=== PATIENT | female | born 1980 | race Two or more races ===

== ENCOUNTER 2016-08-25 17:20 | Observation (INO) | payer MEDICAID ==
[2016-08-25 17:49] LABS: Urine RBC None Seen /hpf (0 - 4)
[2016-08-25 18:11] LABS: Urine Bilirubin Negative (Negative); Urine Blood Negative /uL (Negative); Urine Color Yellow (Yellow); Urine Glucose Normal (Normal); Urine Ketone Negative (Negative); Urine Mucus FEW (None Seen); Urine Squamous Epithelial Cell FEW /hpf (<5); Urine Urobilinogen Normal (Negative); Urine pH 6.5 (5.0-8.0)
[2016-08-25 18:14] LABS: Urine Nitrite POSITIVE (Negative)
[2016-08-25] MEDS ORDERED: ceFAZolin 1GM/50ML D5W 0 ML IV ONE (18:38)
[2016-08-25] MEDS ORDERED: ceFAZolin 1GM 2 GM in D5W 5% 100 ML IV ONE (18:45)
[2016-08-25] MEDS ORDERED: LACTATED RINGER'S 1,000 ML IV ONE (19:00)
[2016-08-25 19:23] LABS: Basophils # (auto) 0.1 uL; Basophils % (auto) 1.2 % (0.0-2.0); DEFINITIVE VIEW TRANSMISSION; Eosinophils # (auto) 0.1 uL; Eosinophils % (auto) 1.3 % (0.0-7.0); Hematocrit 27.3 % (36.0-46.0); Hemoglobin 8.8 g/dL (12.2-16.2); Lymphocytes # (auto) 1.7 uL; Lymphocytes % (auto) 20.1 % (10.0-50.0); Mean Corpuscular Hemoglobin 22.5 pg (28.0-32.0); Mean Corpuscular Hgb Conc. 32.3 g/dL (32.0-36.0); Mean Corpuscular Volume 69.9 fL (80.0-100.0); Mean Platelet Volume 9.2 fL (7.4-10.4); Monocytes # (auto) 0.6 uL; Monocytes % (auto) 7.3 % (0.0-12.0); Neutrophils # (auto) 5.8 uL; Neutrophils % (auto) 70.1 % (37.0-80.0); Platelet Count (auto) 271 10^3/uL (140-450); White Blood Cell 8.2 10^3/uL (4.4-10.8)
[2016-08-25 19:47] LABS: Albumin 2.6 g/dL (3.4-5.0); BUN/Creatinine Ratio 16.3; Calcium 7.9 mg/dL (8.5-10.1); Potassium 3.3 mmol/L (3.5-5.1)
[2016-08-25 19:50] LABS: Bilirubin, Total 0.2 mg/dL (0.2-1.0); Total Protein 7.6 g/dL (6.4-8.2)
[2016-08-25 19:54] LABS: INR 0.96 (0.9-1.15); Partial Thromboplastin Time 26.1 sec (22.64-33.71); Prothrombin Time 9.9 sec (9.37-12.3)
== END 2016-08-25 20:06 | disposition home or self-care (01) | DRG 566 ==
LOC: LDRP 17:20
PROVIDERS: ADMIT Specialist; ATTEND Specialist
DX: O23.42 Unspecified infection of urinary tract in pregnancy, second trimester (principal); Z3A.21 21 weeks gestation of pregnancy
CPT/HCPCS: 36415; 59025; 76805; 80053; 81001; 81002; 85025; 85049; 85610; 85730; 86592; 86703; 86762; 86850; 86870; 86900; 86901; 86905; 87340; G0378; G0434; 96365; 96366; J0690

== ENCOUNTER 2016-09-26 03:15 | Emergency (ER) | payer MEDICAID ==
[~2016-09-26] VITALS: Ht 144.8 cm; Wt 68.9 kg
[2016-09-26 05:29] LABS: Basophils # (auto) 0 uL; Basophils % (auto) 0.1 % (0.0-2.0); DEFINITIVE VIEW TRANSMISSION; Eosinophils # (auto) 0.1 uL; Eosinophils % (auto) 1.5 % (0.0-7.0); Hematocrit 27.8 % (36.0-46.0); Hemoglobin 8.9 g/dL (12.2-16.2); Lymphocytes # (auto) 1.7 uL; Lymphocytes % (auto) 21.3 % (10.0-50.0); Mean Corpuscular Hemoglobin 21.5 pg (28.0-32.0); Mean Corpuscular Hgb Conc. 32.1 g/dL (32.0-36.0); Mean Corpuscular Volume 66.9 fL (80.0-100.0); Mean Platelet Volume 9.9 fL (7.4-10.4); Monocytes # (auto) 0.5 uL; Monocytes % (auto) 6.7 % (0.0-12.0); Neutrophils # (auto) 5.7 uL; Neutrophils % (auto) 70.4 % (37.0-80.0); Platelet Count (auto) 285 10^3/uL (140-450); Red Cell Distribution Width 18.4 % (11.6-16.0); White Blood Cell 8.1 10^3/uL (4.4-10.8)
[2016-09-26 05:43] LABS: Albumin 2.8 g/dL (3.4-5.0); BUN/Creatinine Ratio 11.9; Potassium 3.3 mmol/L (3.5-5.1)
[2016-09-26 05:46] LABS: Bilirubin, Total 0.3 mg/dL (0.2-1.0); Total Protein 7.7 g/dL (6.4-8.2)
[2016-09-26] MEDS ORDERED: POTASSIUM CHL 10% (20 MEQ/15ML) ORAL SOLN PO ONE (08:15)
[2016-09-26] MEDS ORDERED: PROMETHAZINE HCL 25 MG/ML 1ML IV ONE (08:15)
[2016-09-26] MEDS ORDERED: NALBUPHINE HCL 10 MG/1ml INJECTION IV ONE (08:15)
[2016-09-26 09:19] VITALS: BP 126/60
[2016-09-26 10:21] LABS: Urine Bilirubin Negative (Negative); Urine Blood Negative /uL (Negative); Urine Color Yellow (Yellow); Urine Glucose Normal (Normal); Urine Ketone Negative (Negative); Urine Mucus FEW (None Seen); Urine Nitrite Negative (Negative); Urine RBC 11 /hpf (0 - 4); Urine Squamous Epithelial Cell MOD /hpf (<5); Urine Urobilinogen Normal (Negative); Urine pH 6.5 (5.0-8.0)
== END 2016-09-26 10:51 | disposition home or self-care (01) ==
LOC: ER 03:16
DX: O26.892 Other specified pregnancy related conditions, second trimester (principal); G43.109 Migraine with aura, not intractable, without status migrainosus; O99.282 Endocrine, nutritional and metabolic diseases complicating pregnancy, second trimester; E87.6 Hypokalemia; E46 Unspecified protein-calorie malnutrition; Z68.32 Body mass index [BMI] 32.0-32.9, adult; Z3A.26 26 weeks gestation of pregnancy
CPT/HCPCS: 36415; 76805; 80053; 81001; 84702; 85025; 96374; 96375; 99285; J2300; J2550

== ENCOUNTER 2016-10-21 21:25 | Observation (INO) | payer MEDICAID ==
[2016-10-21 23:30] LABS: Urine Bilirubin Negative (Negative); Urine Blood Negative /uL (Negative); Urine Color Yellow (Yellow); Urine Glucose Normal (Normal); Urine Ketone Negative (Negative); Urine Mucus FEW (None Seen); Urine Nitrite Negative (Negative); Urine RBC <1 /hpf (0 - 4); Urine Squamous Epithelial Cell FEW /hpf (<5); Urine Urobilinogen Normal (Negative); Urine pH 6.5 (5.0-8.0)
== END 2016-10-21 22:43 | disposition home or self-care (01) | DRG 566 ==
LOC: LDRP 21:25
PROVIDERS: ADMIT Specialist; ATTEND Specialist
DX: O23.43 Unspecified infection of urinary tract in pregnancy, third trimester (principal); O09.523 Supervision of elderly multigravida, third trimester; O62.9 Abnormality of forces of labor, unspecified; Z3A.29 29 weeks gestation of pregnancy
CPT/HCPCS: 59025; 81001; 81002; G0378; G0434

== ENCOUNTER 2017-10-16 20:30 | Observation (INO) | payer MEDICAID ==
[~2017-10-16] VITALS: Ht 144.8 cm; Wt 61.2 kg
[2017-10-16 21:03] LABS: Urine Bacteria FEW /hpf (None Seen); Urine Blood 1+ /uL (Negative); Urine Specific Gravity 1.005 (1.001-1.035); Urine WBC 2 /hpf (0 - 5)
[2017-10-16 21:17] LABS: Alcohol, Urine < 3.0 mg/dL (0-5); Amphetamine Screen, Urine NEGATIVE (NEGATIVE); Barbiturate Scree,Urine NEGATIVE (NEGATIVE); Benzodiazephine Screen, Urine NEGATIVE (NEGATIVE); Cannabinoid Screen, Urine NEGATIVE (NEGATIVE); Cocaine Screen, Urine NEGATIVE (NEGATIVE); Opiate Scree,Urine NEGATIVE (NEGATIVE); Phencyclidine Screen, Urine NEGATIVE (NEGATIVE)
[2017-10-16] MEDS ORDERED: PREN-96 PO (22:10)
== END 2017-10-16 22:05 | disposition home or self-care (01) | DRG 566 ==
LOC: LDRP 20:30
PROVIDERS: ADMIT Obstetrics & Gynecology; ATTEND Obstetrics & Gynecology
DX: O26.892 Other specified pregnancy related conditions, second trimester (principal); M54.9 Dorsalgia, unspecified; R42 Dizziness and giddiness; R51 Headache; Z3A.22 22 weeks gestation of pregnancy
CPT/HCPCS: 76805; 80307; 81001; G0378; 59025; 81002

== ENCOUNTER 2018-01-27 12:20 | Observation (INO) | payer MEDICAID ==
[~2018-01-27 12:20] MED LIST: PREN-96 PO
[2018-01-27] MEDS ORDERED: TERBUTALINE SULFATE 1 MG/ML 1ML VIAL SC ONE ×2 (12:45→13:00)
[2018-01-27] MEDS ORDERED: LACTATED RINGER'S 1,000 ML IV ONE (12:59)
[2018-01-27] MEDS ORDERED: TERBUTALINE SULFATE 1 MG/ML 1ML VIAL SC SCH (13:00)
== END 2018-01-27 13:45 | disposition home or self-care (01) | DRG 566 ==
LOC: LDRP 12:20
PROVIDERS: ADMIT Specialist; ATTEND Specialist
DX: O62.9 Abnormality of forces of labor, unspecified (principal); O60.03 Preterm labor without delivery, third trimester; Z3A.37 37 weeks gestation of pregnancy
CPT/HCPCS: 59025; 81002; 96360; 96372; G0378; J3105; 96365

== ENCOUNTER 2018-04-13 20:03 | Emergency (ER) | payer MEDICAID ==
[~2018-04-13] VITALS: Ht 144.8 cm; Wt 81.6 kg
[2018-04-13 21:12] VITALS: BP 113/70
[2018-04-13 22:21] LABS: Urine Bacteria FEW /hpf (None Seen); Urine Blood 1+ /uL (Negative); Urine Mucus FEW (None Seen); Urine Specific Gravity 1.027 (1.001-1.035); Urine WBC 12 /hpf (0 - 5)
[2018-04-13 22:24] LABS: Basophils # (auto) 0 uL; Basophils % (auto) 0.2 % (0.0-2.0); Eosinophils # (auto) 0.1 uL; Eosinophils % (auto) 1.1 % (0.0-7.0); Hemoglobin 10.5 g/dL (12.2-16.2); Lymphocytes # (auto) 1.2 uL; Mean Corpuscular Volume 67.2 fL (80.0-100.0); Monocytes % (auto) 6.5 % (0.0-12.0)
[2018-04-13 22:30] LABS: Hematocrit 33.4 % (36.0-46.0); Mean Corpuscular Hemoglobin 21.2 pg (28.0-32.0); Mean Corpuscular Hgb Conc. 31.5 g/dL (32.0-36.0); Monocytes # (auto) 0.7 uL; Neutrophils # (auto) 8.1 uL; Neutrophils % (auto) 80.2 % (37.0-80.0); Platelet Count (auto) 310 10^3/uL (140-450); Red Blood Cells 4.97 10^6/uL (4.0-5.20)
[2018-04-13 22:33] LABS: Red Cell Distribution Width 22.1 % (11.8-14.3)
[2018-04-13 22:37] LABS: Albumin 3.8 g/dL (3.4-5.0); BUN/Creatinine Ratio 15.4; Bilirubin, Total 0.4 mg/dL (0.2-1.0); Calcium 8.4 mg/dL (8.5-10.1); Potassium 3.4 mmol/L (3.5-5.1); Total Protein 8.8 g/dL (6.4-8.2)
== END 2018-04-13 22:47 | disposition left against medical advice (07) ==
LOC: ER 20:03
DX: R10.9 Unspecified abdominal pain (principal); Z53.21 Procedure and treatment not carried out due to patient leaving prior to being seen by health care provider
CPT/HCPCS: 36415; 74176; 80053; 81001; 82150; 83690; 85025

== ENCOUNTER 2018-05-01 11:38 | Inpatient (IN) | payer MEDICAID ==
[~2018-05-01] VITALS: Ht 144.8 cm; Wt 72.7 kg
[2018-05-01 12:35] LABS: Basophils # (auto) 0 uL; Eosinophils # (auto) 0 uL; Monocytes # (auto) 0.3 uL; Neutrophils # (auto) 4.9 uL
[2018-05-01 12:36] LABS: Basophils % (auto) 0.4 % (0.0-2.0); Eosinophils % (auto) 0.3 % (0.0-7.0); Hematocrit 34.6 % (36.0-46.0); Hemoglobin 10.9 g/dL (12.2-16.2); Lymphocytes % (auto) 16.6 % (10.0-50.0); Mean Corpuscular Hemoglobin 21.3 pg (28.0-32.0); Mean Corpuscular Hgb Conc. 31.4 g/dL (32.0-36.0); Mean Corpuscular Volume 67.8 fL (80.0-100.0); Monocytes % (auto) 4.1 % (0.0-12.0); Neutrophils % (auto) 78.6 % (37.0-80.0); Platelet Count (auto) 311 10^3/uL (140-450); White Blood Cell 6.3 10^3/uL (4.4-10.8)
[2018-05-01 12:55] LABS: Albumin 3.7 g/dL (3.4-5.0); BUN/Creatinine Ratio 17.5; Bilirubin, Total 1.1 mg/dL (0.2-1.0); Calcium 8.6 mg/dL (8.5-10.1); Potassium 3.6 mmol/L (3.5-5.1); Total Protein 8.9 g/dL (6.4-8.2)
[2018-05-01 14:31] LABS: Urine Pregnacy Test Negative (Negative)
[2018-05-01 14:39] LABS: Urine Bacteria MOD /hpf (None Seen); Urine Blood 1+ /uL (Negative); Urine Mucus FEW (None Seen); Urine Specific Gravity 1.038 (1.001-1.035); Urine WBC 11 /hpf (0 - 5)
[2018-05-01 14:41] LABS: Amphetamine Screen, Urine NEGATIVE (NEGATIVE); Barbiturate Scree,Urine NEGATIVE (NEGATIVE); Benzodiazephine Screen, Urine NEGATIVE (NEGATIVE); Cannabinoid Screen, Urine POSITIVE (NEGATIVE); Cocaine Screen, Urine NEGATIVE (NEGATIVE); Opiate Scree,Urine NEGATIVE (NEGATIVE); Phencyclidine Screen, Urine NEGATIVE (NEGATIVE)
[2018-05-01 14:48] LABS: Alcohol, Urine < 3.0 mg/dL (0-5)
[2018-05-01] MEDS ORDERED: cefTRIAXone 1GM/10ml IVPUSH 10 ML IV ONE (15:30)
[2018-05-01] MEDS ORDERED: MORPHINE SULFATE 4 MG/ML SYR/VIAL IV ONE (15:30)
[2018-05-01] MEDS ORDERED: ONDANSETRON HCL 4 MG/2 ML VIAL IV ONE (15:30)
[2018-05-01] MEDS ORDERED: SODIUM CHLORIDE 0.9% 1,000 ML IVB ONE (15:54)
[2018-05-01 18:41] LABS: Amylase 43 U/L (25-115); Lipase 218 U/L (73-393)
[2018-05-01] MEDS ORDERED: ACETAMINOPHEN 500 MG TAB PO PRN (22:45)
[2018-05-01] MEDS: SODIUM CHLORIDE 0.9% 1,000 ML IV SCH ×2 (22:58→23:07)
[2018-05-01 23:30] LABS: INR 0.94 (0.9-1.15); Prothrombin Time 10.1 sec (9.27-12.13)
[2018-05-01 23:40] VITALS: BP 118/74
[2018-05-01 23:50] VITALS: BP 118/74
[2018-05-02] MEDS: MORPHINE SULFATE 4 MG/ML SYR/VIAL IV PRN ×3 (02:58→16:20)
[2018-05-02 05:40] VITALS: BP 109/66
[2018-05-02 07:15] LABS: Basophils # (auto) 0 uL; Eosinophils # (auto) 0.1 uL; Eosinophils % (auto) 1.1 % (0.0-7.0); Mean Corpuscular Hemoglobin 21.4 pg (28.0-32.0); Monocytes # (auto) 0.3 uL; Neutrophils # (auto) 3.4 uL; White Blood Cell 4.8 10^3/uL (4.4-10.8)
[2018-05-02 07:18] LABS: Basophils % (auto) 0.4 % (0.0-2.0); Hematocrit 31.9 % (36.0-46.0); Lymphocytes % (auto) 20.6 % (10.0-50.0); Mean Corpuscular Hgb Conc. 31.3 g/dL (32.0-36.0); Mean Corpuscular Volume 68.3 fL (80.0-100.0); Monocytes % (auto) 7.2 % (0.0-12.0); Neutrophils % (auto) 70.7 % (37.0-80.0); Nucleated Red Blood Cells % 0.2 %; Platelet Count (auto) 262 10^3/uL (140-450); Red Blood Cells 4.67 10^6/uL (4.0-5.20)
[2018-05-02 07:21] LABS: Red Cell Distribution Width 20.1 % (11.8-14.3)
[2018-05-02 07:41] LABS: BUN/Creatinine Ratio 10.9; Calcium 8.1 mg/dL (8.5-10.1); Potassium 3.3 mmol/L (3.5-5.1)
[2018-05-02 09:22] VITALS: BP 112/66
[2018-05-02 13:07] VITALS: BP 100/70
[2018-05-02] MEDS: SODIUM CHLORIDE 0.9% 1,000 ML IV SCH (15:09)
[2018-05-02] MEDS: cefTRIAXone 1GM/10ml IVPUSH 10 ML IV SCH (16:05)
[2018-05-02] MEDS: ONDANSETRON HCL 4 MG/2 ML VIAL IV PRN (16:16)
[2018-05-02 17:02] VITALS: BP 110/57
[2018-05-02 22:00] VITALS: BP 118/67
[2018-05-03] MEDS: SODIUM CHLORIDE 0.9% 1,000 ML IV SCH (04:25)
[2018-05-03] MEDS: MORPHINE SULFATE 4 MG/ML SYR/VIAL IV PRN ×3 (04:25→21:06)
[2018-05-03 05:35] VITALS: BP 103/67
[2018-05-03] MEDS ORDERED: POVIDONE IODINE 10 % TOPICAL OINT 30GM TOP ONE (07:02)
[2018-05-03 07:03] LABS: Basophils # (auto) 0 uL; Basophils % (auto) 0.6 % (0.0-2.0); Eosinophils # (auto) 0.1 uL; Lymphocytes # (auto) 1.5 uL; Monocytes # (auto) 0.4 uL
[2018-05-03 07:07] LABS: Eosinophils % (auto) 2.8 % (0.0-7.0); Hematocrit 29.2 % (36.0-46.0); Hemoglobin 9.2 g/dL (12.2-16.2); Lymphocytes % (auto) 30.3 % (10.0-50.0); Mean Corpuscular Hemoglobin 21.5 pg (28.0-32.0); Mean Corpuscular Hgb Conc. 31.6 g/dL (32.0-36.0); Monocytes % (auto) 7.1 % (0.0-12.0); Neutrophils % (auto) 59.2 % (37.0-80.0); Nucleated Red Blood Cells % 0.1 %; Platelet Count (auto) 240 10^3/uL (140-450); Red Blood Cells 4.29 10^6/uL (4.0-5.20); Red Cell Distribution Width 19.8 % (11.8-14.3)
[2018-05-03 07:30] LABS: Albumin 2.9 g/dL (3.4-5.0); BUN/Creatinine Ratio 11.8; Bilirubin, Total 0.4 mg/dL (0.2-1.0); Calcium 8.1 mg/dL (8.5-10.1); Potassium 3.1 mmol/L (3.5-5.1); Total Protein 7.2 g/dL (6.4-8.2)
[2018-05-03 08:57] VITALS: BP 119/77
[2018-05-03] MEDS ORDERED: POTASSIUM CHL 20MEQ/100ML 100 ML IV ONE (12:30)
[2018-05-03 13:00] VITALS: BP 119/77
[2018-05-03] MEDS ORDERED: LIDOCAINE 1% (LOCAL ANESTH.) PF 5ml SDV ONE (13:13)
[2018-05-03] MEDS ORDERED: SUCCINYLCHOLINE CHLORIDE 20 MG/ML 10ML VIAL IV ONE (13:13)
[2018-05-03] MEDS ORDERED: MIDAZOLAM HCL 1MG/1ML-2 ML VIAL ONE (13:16)
[2018-05-03] MEDS ORDERED: ROCURONIUM 10MG/ML 10ML VIAL IV ONE (13:17)
[2018-05-03] MEDS ORDERED: ceFAZolin 1GM/50ML 50 ML IV ONE (13:21)
[2018-05-03] MEDS ORDERED: ETOMIDATE (2MG/ML) 20ML VIAL IV ONE (13:22)
[2018-05-03] MEDS ORDERED: METOCLOPRAMIDE HCL 5MG/ml INJ 2ml VIAL ONE (13:26)
[2018-05-03] MEDS ORDERED: fentaNYL CITRATE 100 MCG/2 ML VL ONE (13:33)
[2018-05-03] MEDS ORDERED: hydrALAZINE HCL 20 MG/ML VL IV PRN (13:45)
[2018-05-03] MEDS ORDERED: NALOXONE HCL 0.4 MG/ML VIAL IV PRN (13:45)
[2018-05-03] MEDS ORDERED: ONDANSETRON HCL 4 MG/2 ML VIAL IV ONE (13:45)
[2018-05-03] MEDS ORDERED: HYDROmorphone HCL 2 MG/ML VL IV PRN (13:45)
[2018-05-03] MEDS ORDERED: KETOROLAC TROMETH 30 MG/ML 1ML VIAL ONE (14:10)
[2018-05-03] MEDS ORDERED: NEOSTIGMINE 1 MG/ML INJ (10mg/10ML VIAL) ONE (14:17)
[2018-05-03] MEDS ORDERED: GLYCOPYRROLATE 0.2 MG/ML 1ML VIAL ONE (14:17)
[2018-05-03] MEDS: HYDROmorphone HCL 2 MG/ML VL IV PRN ×2 (14:35→14:50)
[2018-05-03] MEDS: ONDANSETRON HCL 4 MG/2 ML VIAL IV PRN ×2 (16:22→21:06)
[2018-05-03] MEDS: cefTRIAXone 1GM/10ml IVPUSH 10 ML IV SCH (16:34)
[2018-05-03 17:00] VITALS: BP 118/81
[2018-05-03 22:00] VITALS: BP 131/81
[2018-05-04] MEDS: MORPHINE SULFATE 4 MG/ML SYR/VIAL IV PRN ×4 (01:19→15:29)
[2018-05-04] MEDS: ONDANSETRON HCL 4 MG/2 ML VIAL IV PRN ×4 (01:20→15:29)
[2018-05-04] MEDS: SODIUM CHLORIDE 0.9% 1,000 ML IV SCH ×2 (04:27→17:42)
[2018-05-04 05:09] VITALS: BP 130/76
[2018-05-04 05:57] LABS: Basophils # (auto) 0 uL; Basophils % (auto) 0.1 % (0.0-2.0); Eosinophils # (auto) 0 uL; Hemoglobin 9.9 g/dL (12.2-16.2); Lymphocytes # (auto) 0.7 uL; Monocytes # (auto) 0.5 uL; Monocytes % (auto) 5.6 % (0.0-12.0); Nucleated Red Blood Cells % 0.1 %; White Blood Cell 8.1 10^3/uL (4.4-10.8)
[2018-05-04 05:59] LABS: Eosinophils % (auto) 0.1 % (0.0-7.0); Hematocrit 30.3 % (36.0-46.0); Lymphocytes % (auto) 8.5 % (10.0-50.0); Mean Corpuscular Hemoglobin 22.1 pg (28.0-32.0); Mean Corpuscular Hgb Conc. 32.7 g/dL (32.0-36.0); Mean Corpuscular Volume 67.6 fL (80.0-100.0); Neutrophils % (auto) 85.7 % (37.0-80.0); Platelet Count (auto) 250 10^3/uL (140-450); Red Blood Cells 4.48 10^6/uL (4.0-5.20); Red Cell Distribution Width 19.7 % (11.8-14.3)
[2018-05-04 06:08] LABS: Albumin 2.9 g/dL (3.4-5.0); Calcium 7.6 mg/dL (8.5-10.1)
[2018-05-04 06:14] LABS: Bilirubin, Total 0.6 mg/dL (0.2-1.0); Total Protein 7.4 g/dL (6.4-8.2)
[2018-05-04 06:25] LABS: Potassium 2.9 mmol/L (3.5-5.1)
[2018-05-04] MEDS ORDERED: POTASSIUM CHL 20 Meq TABLET PO ONE ×2 (06:30→14:45)
[2018-05-04 08:00] VITALS: BP 138/74
[2018-05-04 09:22] VITALS: BP 138/74
[2018-05-04 11:32] VITALS: BP 117/72
[2018-05-04] MEDS: HYDROcodone-ACET 5/325MG TAB PO PRN ×3 (13:39→22:38)
[2018-05-04] MEDS: cefTRIAXone 1GM/10ml IVPUSH 10 ML IV SCH (15:28)
[2018-05-04 16:38] VITALS: BP 113/69
[2018-05-04 21:57] VITALS: BP 110/71
[2018-05-05] MEDS: ONDANSETRON HCL 4 MG/2 ML VIAL IV PRN ×3 (02:00→22:53)
[2018-05-05] MEDS: MORPHINE SULFATE 4 MG/ML SYR/VIAL IV PRN (02:01)
[2018-05-05 05:03] VITALS: BP 107/79
[2018-05-05 05:03] LABS: Hematocrit 28.8 % (36.0-46.0)
[2018-05-05 05:19] LABS: Albumin 2.7 g/dL (3.4-5.0); BUN/Creatinine Ratio 11.9; Calcium 7.7 mg/dL (8.5-10.1); Potassium 3.6 mmol/L (3.5-5.1)
[2018-05-05 05:21] LABS: Bilirubin, Total 0.5 mg/dL (0.2-1.0); Total Protein 7.1 g/dL (6.4-8.2)
[2018-05-05] MEDS: HYDROcodone-ACET 5/325MG TAB PO PRN ×4 (06:09→21:49)
[2018-05-05] MEDS: SODIUM CHLORIDE 0.9% 1,000 ML IV SCH ×2 (06:12→20:05)
[2018-05-05 09:00] VITALS: BP 117/69
[2018-05-05] MEDS ORDERED: POTASSIUM CHL 20 Meq TABLET PO ONE (12:45)
[2018-05-05] MEDS ORDERED: MORPHINE SULFATE 4 MG/ML SYR/VIAL IV PRN (12:45)
[2018-05-05 13:00] VITALS: BP 130/71
[2018-05-05] MEDS: cefTRIAXone 1GM/10ml IVPUSH 10 ML IV SCH (15:38)
[2018-05-05 17:00] VITALS: BP 109/70
[2018-05-05 21:49] VITALS: BP 111/66
[2018-05-06] MEDS: HYDROcodone-ACET 5/325MG TAB PO PRN ×2 (03:59→10:33)
[2018-05-06] MEDS: ONDANSETRON HCL 4 MG/2 ML VIAL IV PRN ×2 (04:22→10:33)
[2018-05-06 05:00] VITALS: BP 128/79
[2018-05-06 06:50] LABS: Hemoglobin 9.6 g/dL (12.2-16.2)
[2018-05-06 06:52] LABS: Hematocrit 30.2 % (36.0-46.0)
[2018-05-06 07:49] LABS: Potassium 3.4 mmol/L (3.5-5.1)
[2018-05-06 07:54] LABS: Albumin 2.9 g/dL (3.4-5.0)
[2018-05-06 07:59] LABS: Bilirubin, Direct 0.2 mg/dL (0-0.2); Bilirubin, Total 0.5 mg/dL (0.2-1.0); Total Protein 7.6 g/dL (6.4-8.2)
[2018-05-06 09:00] VITALS: BP 111/69
[2018-05-06] MEDS: SODIUM CHLORIDE 0.9% 1,000 ML IV SCH (09:25)
[2018-05-06 13:00] VITALS: BP 117/64
[2018-05-06] MEDS ORDERED: LEVO500T21 PO (13:56)
[2018-05-06] MEDS ORDERED: POTASSIUM CHL 20 Meq TABLET PO ONE (14:00)
[2018-05-06] MEDS ORDERED: ONDA4TAB5 PO (14:11)
[2018-05-06] MEDS: cefTRIAXone 1GM/10ml IVPUSH 10 ML IV SCH (16:00)
== END 2018-05-06 18:00 | disposition home or self-care (01) | DRG 263 ==
LOC: ER 11:38 → TELE 11:39 → TELE-WESTW 23:19
PROVIDERS: ADMIT Nurse Practitioner Family; ATTEND Internal Medicine
PROC: 0FT44ZZ Resection of Gallbladder, Percutaneous Endoscopic Approach (ICD-10-PCS; principal; 2018-05-03 13:22)
DX: K80.00 Calculus of gallbladder with acute cholecystitis without obstruction (principal); N30.00 Acute cystitis without hematuria; E87.6 Hypokalemia; B96.20 Unspecified Escherichia coli [E. coli] as the cause of diseases classified elsewhere; D50.9 Iron deficiency anemia, unspecified; E66.9 Obesity, unspecified; Z68.34 Body mass index [BMI] 34.0-34.9, adult
CPT/HCPCS: 36415; 74176; 76705; 80048; 80053; 80076; 80307; 81001; 81025; 82150; 83690; 83735; 84132; 84484; 85014; 85018; 85025; 85379; 85610; 85730; 86850; 86870; 86900; 86901; 87081; 87086; 87088; 87186; 96361; 96374; 96375; A6257; J0330; J0690; J0696; J1885; J2250; J2405

== ENCOUNTER 2019-05-23 16:00 | Emergency (ER) | payer MEDICAID ==
[~2019-05-23] VITALS: Ht 144.8 cm; Wt 63.0 kg
[~2019-05-23 16:00] MED LIST changes: +LEVO500T21 PO; +ONDA-144 PO; -PREN-96 PO
[2019-05-23 18:18] LABS: Albumin 3.3 g/dL (3.4-5.0); BUN/Creatinine Ratio 16.7; Basophils # (auto) 0 uL; Calcium 7.2 mg/dL (8.5-10.1); Eosinophils # (auto) 0.1 uL; Eosinophils % (auto) 1.6 % (0.0-7.0); Hemoglobin 10.2 g/dL (12.2-16.2); Lymphocytes # (auto) 1.6 uL; Potassium 3.8 mmol/L (3.5-5.1); White Blood Cell 5.8 10^3/uL (4.4-10.8)
[2019-05-23 18:21] LABS: Basophils % (auto) 0.6 % (0.0-2.0); Bilirubin, Total 0.3 mg/dL (0.2-1.0); Hematocrit 32.7 % (36.0-46.0); Lymphocytes % (auto) 26.9 % (10.0-50.0); Mean Corpuscular Hemoglobin 21.4 pg (28.0-32.0); Mean Corpuscular Hgb Conc. 31.3 g/dL (32.0-36.0); Mean Corpuscular Volume 68.5 fL (80.0-100.0); Monocytes # (auto) 0.6 uL; Monocytes % (auto) 9.6 % (0.0-12.0); Neutrophils # (auto) 3.6 uL; Neutrophils % (auto) 61.3 % (37.0-80.0); Nucleated Red Blood Cells % 0.1 %; Platelet Count (auto) 310 10^3/uL (140-450); Red Blood Cells 4.77 10^6/uL (4.0-5.20); Red Cell Distribution Width 18.7 % (11.8-14.3); Total Protein 9.1 g/dL (6.4-8.2)
[2019-05-23 18:37] LABS: INR 0.95 (0.9-1.15); Partial Thromboplastin Time 25.2 sec (23.64-32.05)
[2019-05-23 19:07] LABS: Urine Bacteria MANY /hpf (None Seen); Urine Blood 1+ /uL (Negative); Urine Mucus FEW (None Seen); Urine WBC 66 /hpf (0 - 5)
[2019-05-23 19:52] VITALS: BP 107/68
== END 2019-05-23 19:59 | disposition home or self-care (01) ==
LOC: ER 16:00
DX: N39.0 Urinary tract infection, site not specified (principal); B19.9 Unspecified viral hepatitis without hepatic coma; Z90.49 Acquired absence of other specified parts of digestive tract
CPT/HCPCS: 36415; 74176; 80053; 81001; 82150; 83690; 85025; 85610; 85730

== ENCOUNTER 2019-05-27 20:57 | Emergency (ER) | payer MEDICAID ==
[~2019-05-27] VITALS: Ht 144.8 cm; Wt 56.7 kg
[2019-05-27 23:15] LABS: Basophils # (auto) 0 uL; Eosinophils # (auto) 0 uL; Eosinophils % (auto) 0.6 % (0.0-7.0); Mean Corpuscular Volume 68.4 fL (80.0-100.0); Monocytes # (auto) 0.5 uL; Monocytes % (auto) 7.3 % (0.0-12.0); Neutrophils # (auto) 5.3 uL; Nucleated Red Blood Cells % 0.1 %
[2019-05-27 23:17] LABS: Basophils % (auto) 0.4 % (0.0-2.0); Hematocrit 33.5 % (36.0-46.0); Hemoglobin 10.5 g/dL (12.2-16.2); Lymphocytes # (auto) 1.2 uL; Lymphocytes % (auto) 17.3 % (10.0-50.0); Mean Corpuscular Hemoglobin 21.5 pg (28.0-32.0); Mean Corpuscular Hgb Conc. 31.4 g/dL (32.0-36.0); Neutrophils % (auto) 74.4 % (37.0-80.0); Platelet Count (auto) 278 10^3/uL (140-450); Red Cell Distribution Width 18.9 % (11.8-14.3); White Blood Cell 7.1 10^3/uL (4.4-10.8)
[2019-05-27 23:36] LABS: Potassium 3.7 mmol/L (3.5-5.1)
[2019-05-27 23:42] LABS: Albumin 3.9 g/dL (3.4-5.0); BUN/Creatinine Ratio 18.3; Calcium 8.9 mg/dL (8.5-10.1)
[2019-05-27 23:47] LABS: Bilirubin, Total 0.4 mg/dL (0.2-1.0); Total Protein 8.8 g/dL (6.4-8.2)
[2019-05-28] MEDS ORDERED: PHENAZOPYRIDINE HCL 100 MG TAB PO ONE (03:00)
[2019-05-28] MEDS ORDERED: cefTRIAXone SOD 1,000 MG VL IM ONE (03:00)
[2019-05-28 03:03] VITALS: BP 117/85
== END 2019-05-28 03:51 | disposition home or self-care (01) ==
LOC: EDBD 20:57 → ER 20:57
DX: N39.0 Urinary tract infection, site not specified (principal); K43.9 Ventral hernia without obstruction or gangrene; Z90.49 Acquired absence of other specified parts of digestive tract
CPT/HCPCS: 36415; 80053; 82150; 83690; 85025; 96372; 99283; J0696

== ENCOUNTER 2020-07-27 00:54 | Emergency (ER) | payer MEDICAID ==
[~2020-07-27] VITALS: Ht 144.8 cm; Wt 68.5 kg
[2020-07-27] MEDS ORDERED: SODIUM CHLORIDE 0.9% 1,000 ML IV ONE (03:45)
[2020-07-27 03:55] LABS: Urine Bacteria MOD /hpf (None Seen); Urine Blood 3+ /uL (Negative); Urine WBC 182 /hpf (0 - 5); Urine WBC Clumps PRESENT /hpf (None Seen)
[2020-07-27 03:56] LABS: Basophils # (auto) 0 10 ^3/uL (0-0.2); Basophils % (auto) 0.3 % (0.0-2.0); Eosinophils # (auto) 0.1 10 ^3/uL (0-0.8); Eosinophils % (auto) 1.6 % (0.0-7.0); Hematocrit 30.5 % (36.0-46.0); Lymphocytes # (auto) 1.1 10 ^3/uL (0.4-5.4); Lymphocytes % (auto) 19.6 % (10.0-50.0); Mean Corpuscular Hemoglobin 22.4 pg (28.0-32.0); Mean Corpuscular Hgb Conc. 32.7 g/dL (32.0-36.0); Mean Corpuscular Volume 68.4 fL (80.0-100.0); Monocytes # (auto) 0.6 10 ^3/uL (0-1.3); Monocytes % (auto) 9.7 % (0.0-12.0); Neutrophils % (auto) 68.8 % (37.0-80.0); Nucleated Red Blood Cells % 0.1 %; Platelet Count (auto) 269 10^3/uL (140-450); Red Blood Cells 4.46 10^6/uL (4.0-5.20); White Blood Cell 5.8 10^3/uL (4.4-10.8)
[2020-07-27 04:16] LABS: Albumin 3.5 g/dL (3.4-5.0); Calcium 9.5 mg/dL (8.5-10.1); Potassium 3.4 mmol/L (3.5-5.1)
[2020-07-27 04:18] LABS: INR 0.95 (0.9-1.15); Partial Thromboplastin Time 23.4 sec (23.0-31.2)
[2020-07-27 04:20] LABS: BUN/Creatinine Ratio 31.4; Bilirubin, Total 0.1 mg/dL (0.2-1.0); Total Protein 8.8 g/dL (6.4-8.2)
[2020-07-27 05:29] VITALS: BP 99/61
[2020-07-27] MEDS ORDERED: ONDANSETRON HCL 4 MG/2 ML VIAL IV ONE (05:45)
[2020-07-27] MEDS ORDERED: MORPHINE SULF INJ 2 MG/ML SYRINGE 1ML IV ONE (05:45)
== END 2020-07-27 06:08 | disposition home or self-care (01) ==
LOC: ER 00:54
DX: O20.0 Threatened abortion (principal); Z3A.01 Less than 8 weeks gestation of pregnancy
CPT/HCPCS: 36415; 76801; 76817; 80053; 81001; 84702; 85025; 85610; 85730; 96361; 96374; 96375; 99284; J2270; J2405; J7030

== ENCOUNTER 2020-12-24 23:14 | Observation (INO) | payer MEDICAID ==
[~2020-12-24] VITALS: Ht 144.8 cm; Wt 58.1 kg
[~2020-12-24 23:14] MED LIST changes: -LEVO500T21 PO; +LEVO500T31 PO
[2020-12-25 00:49] LABS: Alcohol, Urine < 3.0 mg/dL (0-10); Amphetamine Screen, Urine NEGATIVE (NEGATIVE); Barbiturate Scree,Urine NEGATIVE (NEGATIVE); Benzodiazephine Screen, Urine NEGATIVE (NEGATIVE); Cannabinoid Screen, Urine NEGATIVE (NEGATIVE); Cocaine Screen, Urine NEGATIVE (NEGATIVE); Opiate Scree,Urine NEGATIVE (NEGATIVE); Phencyclidine Screen, Urine NEGATIVE (NEGATIVE)
[2020-12-25 00:50] LABS: Urine Amorphous Crystal FEW /hpf (None Seen); Urine Bacteria FEW /hpf (None Seen); Urine Blood Negative /uL (Negative); Urine Specific Gravity 1.009 (1.001-1.035); Urine WBC 1 /hpf (0 - 5)
[2020-12-25 00:57] LABS: Basophils # (auto) 0 10 ^3/uL (0-0.2); Basophils % (auto) 0.2 % (0.0-2.0); Eosinophils # (auto) 0 10 ^3/uL (0-0.8); Eosinophils % (auto) 0.8 % (0.0-7.0); Hematocrit 26.9 % (36.0-46.0); Hemoglobin 8.6 g/dL (12.2-16.2); Lymphocytes # (auto) 0.9 10 ^3/uL (0.4-5.4); Lymphocytes % (auto) 15.5 % (10.0-50.0); Mean Corpuscular Hemoglobin 21.8 pg (28.0-32.0); Mean Corpuscular Hgb Conc. 31.9 g/dL (32.0-36.0); Mean Corpuscular Volume 68.2 fL (80.0-100.0); Monocytes # (auto) 0.5 10 ^3/uL (0-1.3); Neutrophils # (auto) 4.6 10 ^3/uL (1.6-8.6); Neutrophils % (auto) 75.5 % (37.0-80.0); Nucleated Red Blood Cells % 0.2 %; Platelet Count (auto) 223 10^3/uL (140-450); Red Blood Cells 3.94 10^6/uL (4.0-5.20); Red Cell Distribution Width 18.9 % (11.8-14.3)
[2020-12-25 01:15] LABS: Albumin 2.5 g/dL (3.4-5.0); BUN/Creatinine Ratio 16.9; Calcium 7.9 mg/dL (8.5-10.1); Potassium 3.1 mmol/L (3.5-5.1)
[2020-12-25 01:17] LABS: Bilirubin, Total 0.2 mg/dL (0.2-1.0); Total Protein 7.5 g/dL (6.4-8.2)
[2020-12-25 01:42] LABS: Uric Acid 3.4 mg/dL (2.6-6.0)
[2020-12-25 01:43] LABS: INR 0.97 (0.9-1.15); Partial Thromboplastin Time 24.2 sec (23.0-31.2)
[2020-12-25 01:45] LABS: Protein, Urine 12.4 mg/dL (0.0-11.9)
[2020-12-25] MEDS ORDERED: FERR1TAB36 PO (02:14)
[2020-12-25] MEDS ORDERED: PREN-96 PO (02:14)
== END 2020-12-25 02:19 | disposition home or self-care (01) ==
LOC: LDRP 23:14
PROVIDERS: ADMIT Obstetrics & Gynecology; ATTEND Obstetrics & Gynecology
DX: O62.9 Abnormality of forces of labor, unspecified (principal); O26.893 Other specified pregnancy related conditions, third trimester; R51.9 Headache, unspecified; R42 Dizziness and giddiness; Z3A.28 28 weeks gestation of pregnancy; Z79.899 Other long term (current) drug therapy; Z98.890 Other specified postprocedural states
CPT/HCPCS: 36415; 59025; 76818; 80053; 80307; 81001; 81002; 82570; 84156; 84550; 85025; 85384; 85610; 85730; 86850; 86870; 86900; 86901; G0378

== ENCOUNTER 2021-01-28 19:45 | Observation (INO) | payer MEDICAID ==
[~2021-01-28] VITALS: Ht 142.2 cm; Wt 68.0 kg
[~2021-01-28 19:45] MED LIST changes: +FERR1TAB36 PO; +PREN-96 PO
[2021-01-28] MEDS ORDERED: TERBUTALINE SULFATE 1 MG/ML 1ML VIAL SC SCH (23:15)
[2021-01-28] MEDS ORDERED: LACTATED RINGER'S 1,000 ML IV SCH (23:15)
[2021-01-28] MEDS ORDERED: LACTATED RINGER'S 1,000 ML IV ONE (23:15)
== END 2021-01-29 00:33 | disposition home or self-care (01) ==
LOC: LDRP 19:45
PROVIDERS: ADMIT Obstetrics & Gynecology; ATTEND Obstetrics & Gynecology
DX: O60.03 Preterm labor without delivery, third trimester (principal); O26.893 Other specified pregnancy related conditions, third trimester; R11.0 Nausea; Z3A.33 33 weeks gestation of pregnancy
CPT/HCPCS: 59025; 76815; 81002; 94760; 96360; 96361; 96372; G0378; J3105

== ENCOUNTER 2021-10-10 00:13 | Emergency (ER) | payer MEDICAID ==
[~2021-10-10] VITALS: Ht 144.8 cm; Wt 67.1 kg
[2021-10-10 01:22] LABS: Basophils # (auto) 0 10 ^3/uL (0-0.2); Basophils % (auto) 0.5 % (0.0-2.0); Eosinophils # (auto) 0.2 10 ^3/uL (0-0.8); Eosinophils % (auto) 3.3 % (0.0-7.0); Hematocrit 34.4 % (36.0-46.0); Hemoglobin 11.8 g/dL (12.2-16.2); Lymphocytes # (auto) 1.4 10 ^3/uL (0.4-5.4); Lymphocytes % (auto) 20.8 % (10.0-50.0); Mean Corpuscular Hemoglobin 27.8 pg (28.0-32.0); Mean Corpuscular Hgb Conc. 34.3 g/dL (32.0-36.0); Monocytes # (auto) 0.6 10 ^3/uL (0-1.3); Monocytes % (auto) 8.1 % (0.0-12.0); Neutrophils # (auto) 4.6 10 ^3/uL (1.6-8.6); Neutrophils % (auto) 67.3 % (37.0-80.0); Nucleated Red Blood Cells % 0.2 %; Red Blood Cells 4.24 10^6/uL (4.0-5.20); Red Cell Distribution Width 14.3 % (11.8-14.3); White Blood Cell 6.9 10^3/uL (4.4-10.8)
[2021-10-10] MEDS ORDERED: MORPHINE SULFATE 4 MG/ML SYR/VIAL IV ONE (02:45)
[2021-10-10 06:05] VITALS: BP 104/67
== END 2021-10-10 06:11 | disposition home or self-care (01) ==
LOC: ER 00:21
DX: O20.0 Threatened abortion (principal); Z90.49 Acquired absence of other specified parts of digestive tract; Z79.2 Long term (current) use of antibiotics; Z79.899 Other long term (current) drug therapy; Z3A.01 Less than 8 weeks gestation of pregnancy
CPT/HCPCS: 36415; 76801; 76817; 84702; 85025; 86850; 86870; 86900; 86901; 96374; 99284; J2270

== ENCOUNTER 2021-10-12 17:13 | Emergency (ER) | payer MEDICAID ==
[~2021-10-12] VITALS: Ht 144.8 cm; Wt 67.1 kg
[2021-10-12 17:25] VITALS: BP 96/36
[2021-10-12 20:48] LABS: Basophils # (auto) 0 10 ^3/uL (0-0.2); Basophils % (auto) 0.4 % (0.0-2.0); Eosinophils # (auto) 0.2 10 ^3/uL (0-0.8); Eosinophils % (auto) 3.1 % (0.0-7.0); Hematocrit 32.7 % (36.0-46.0); Hemoglobin 11.1 g/dL (12.2-16.2); Lymphocytes # (auto) 1.3 10 ^3/uL (0.4-5.4); Lymphocytes % (auto) 22.5 % (10.0-50.0); Mean Corpuscular Hemoglobin 27.8 pg (28.0-32.0); Mean Corpuscular Hgb Conc. 33.9 g/dL (32.0-36.0); Mean Corpuscular Volume 81.8 fL (80.0-100.0); Monocytes # (auto) 0.5 10 ^3/uL (0-1.3); Monocytes % (auto) 8.7 % (0.0-12.0); Neutrophils # (auto) 3.6 10 ^3/uL (1.6-8.6); Neutrophils % (auto) 65.3 % (37.0-80.0); Nucleated Red Blood Cells % 0.2 %; Red Cell Distribution Width 14.9 % (11.8-14.3); White Blood Cell 5.6 10^3/uL (4.4-10.8)
[2021-10-12 21:04] LABS: INR 0.98 (0.9-1.15); Partial Thromboplastin Time 23.9 sec (23.6-33.0)
[2021-10-12 21:05] LABS: Albumin 3.4 g/dL (3.4-5.0); BUN/Creatinine Ratio 20.4; Calcium 8.5 mg/dL (8.5-10.1); Potassium 3.2 mmol/L (3.5-5.1)
[2021-10-12 21:07] LABS: Bilirubin, Total 0.3 mg/dL (0.2-1.0); Total Protein 8.1 g/dL (6.4-8.2)
[2021-10-12] MEDS ORDERED: ACETAMINOPHEN 325 MG TAB PO ONE (22:15)
== END 2021-10-12 23:38 | disposition left against medical advice (07) ==
LOC: ER 17:13
DX: O03.4 Incomplete spontaneous abortion without complication (principal); K80.80 Other cholelithiasis without obstruction; Z90.49 Acquired absence of other specified parts of digestive tract; Z79.2 Long term (current) use of antibiotics; Z79.899 Other long term (current) drug therapy
CPT/HCPCS: 36415; 80053; 84702; 85025; 85610; 85730; 86850; 86870; 86900; 86901